=== PATIENT | male | born 1945 | race Caucasian/White ===

== ENCOUNTER 2017-04-07 09:00 | Inpatient (IN) | payer MEDICARE ==
--- NOTE | 2017-04-07 10:19 | Rehab Joint Replacement Pre-Op ---
Rehab Joint Replacement Pre-Op - Pre-Op Visit Reviewed Items Scheduled for Post Op Visit: No Pre-Op Visit Comment: Pt lives in single family home, 3 steps to enter. All living on 1st floor. Pt needs walker and tub bench want to look for cowlitz equipment. may need some equipment when arrive for surgery if can't find. Pt given sources. Dale Hose/Garment Measure THR - Thigh High: Yes Exercise Reviewed: Yes Stair Climbing: Yes Cane/Walker/Crutch Training: Yes Vend Equipment - Cane or Walker and OT Kit: N/A List of Venders in the Area: Yes Shower Chair Transfers: Yes Car Transfers: Yes Bed Transfers: Yes Additional Comments: Pt did very well. but encouraged to get equipment and practice.
[2017-04-14] MEDS ORDERED: METOCLOPRAMIDE 10 MG TABLET PO ONE (06:00)
[2017-04-14] MEDS ORDERED: CEFAZOLIN 2 Gram 50 ML IVPB ONE (06:00)
[2017-04-14] MEDS ORDERED: CELECOXIB 100 MG CAPSULE PO ONE (06:00)
[2017-04-14] MEDS ORDERED: VANCOMYCIN HCL 1,000 MG in 0.9 % SODIUM CHLORIDE 250ML 250 ML IVPB ONE (06:00)
[2017-04-14] MEDS ORDERED: ACETAMINOPHEN 1000MG/100 ML PREMIX IV ONE (06:00)
[2017-04-14] MEDS ORDERED: FAMOTIDINE 20MG TABLET PO ONE (06:00)
[2017-04-14] MEDS ORDERED: MECLIZINE 25 MG TABLET PO ONE (06:00)
[2017-04-14] MEDS ORDERED: TRANEXAMIC ACID 1,000 MG/10 ML ML IV ONE ×2 (06:00→14:00)
[2017-04-14 08:29] LABS: ABO GROUP A; ANTIBODY SCREEN NEGATIVE (NEGATIVE); RH TYPE POSITIVE
[2017-04-14] MEDS ORDERED: NALOXONE 0.4 MG/1 ML VIAL IVP PRN (11:09)
[2017-04-14] MEDS ORDERED: ONDANSETRON HCL IV 4 MG/2 ML VIAL IVP PRN (11:09)
[2017-04-14] MEDS ORDERED: TRAMADOL HCL 50 MG TABLET PO PRN (11:09)
[2017-04-14] MEDS ORDERED: KETOROLAC 30 MG/ML VIAL IVP PRN ×2 (11:09)
[2017-04-14] MEDS ORDERED: ACETAMINOPHEN 325 MG TAB PO PRN (11:09)
[2017-04-14] MEDS ORDERED: ZOLPIDEM TARTRATE 5 MG TABLET PO PRN (11:09)
[2017-04-14] MEDS ORDERED: DIPHENHYDRAMINE HCL 25 MG CAPSULE PO PRN (11:09)
[2017-04-14] MEDS ORDERED: HYDROMORPHONE HCL 1 MG/ML CPJ IM PRN ×2 (11:09)
[2017-04-14] MEDS ORDERED: BISACODYL 10 MG SUPP RC PRN (11:09)
[2017-04-14] MEDS ORDERED: AL HYDROX/MAG HYDROX 30ML UD PO PRN (11:09)
[2017-04-14] MEDS ORDERED: MAGNESIUM HYDROXIDE 30 ML UDC PO PRN (11:09)
[2017-04-14] MEDS ORDERED: ACETAMINOPHEN W/ CODEINE 300MG/60MG TABLET PO PRN ×2 (11:09)
[2017-04-14] MEDS ORDERED: HYDROMORPHONE HCL 2 MG/ML VIAL IM PRN (11:09)
[2017-04-14] MEDS ORDERED: RIVAROXABAN 10 MG TABLET PO SCH (11:15)
[2017-04-14] MEDS ORDERED: POTASSIUM CHLORIDE/D5-0.9%NACL 20 MEQ in PREMIX D5 + NS 1000ML 1 BAG IV SCH (11:15)
[2017-04-14] MEDS ORDERED: LORAZEPAM 2 MG/ML VIAL IV ONE (13:45)
[2017-04-14] MEDS ORDERED: ALPRAZOLAM 0.25 MG TABLET PO PRN (13:52)
[2017-04-14] MEDS ORDERED: FENTANYL PF 100MCG/2ML VIAL IV ONE (14:00)
[2017-04-14] MEDS ORDERED: *PACU ONLY* KETAMINE HCL 10 MG/ML (20ML) VIAL IV ONE (14:00)
[2017-04-14] MEDS ORDERED: BUPIVACAINE 0.5% W/EPI MPF 30 ML VIAL IVP ONE (14:00)
[2017-04-14] MEDS ORDERED: MIDAZOLAM HCL 2MG/2ML VIAL IV ONE (14:00)
[2017-04-14] MEDS ORDERED: LORAZEPAM 0.5 MG TABLET PO ONE (14:00)
[2017-04-14] MEDS ORDERED: KETOROLAC 30 MG/ML VIAL IVP ONE (14:00)
[2017-04-14] MEDS ORDERED: LIDOCAINE 2% MDV (20MG/ML) 20ML VIAL IV ONE (14:00)
[2017-04-14] MEDS ORDERED: PROPOFOL 10 MG/ML VIAL IV ONE (14:00)
[2017-04-14] MEDS: POTASSIUM CHLORIDE/D5-0.9%NACL 20 MEQ/1,000 ML BAG IV SCH ×2 (15:00→23:44)
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
[2017-04-14] MEDS ORDERED: LORAZEPAM 0.5 MG TABLET PO SCH (16:00)
[2017-04-14] MEDS: LORAZEPAM 0.5 MG TABLET PO SCH ×3 (16:16→22:03)
[2017-04-14] MEDS: CEFAZOLIN 2 Gram 2 GM/50 ML BAG IVPB SCH ×2 (16:24→23:36)
[2017-04-14] MEDS: HYDROCODONE/APAP 10/325 TABLET PO PRN (20:16)
[2017-04-14] MEDS: PATIENT OWN MED: LISINOPRIL 20 MG PO SCH (20:19)
[2017-04-14] MEDS: PATIENT OWN MED: PRAVASTATIN 80 MG PO SCH (20:19)
[2017-04-14] MEDS: PATIENT OWN MED: DULOXETINE 60 MG PO SCH (20:19)
[2017-04-14] MEDS: PATIENT OWN MED: TAMSULOSIN 0.4 MG PO SCH (20:19)
[2017-04-14] MEDS: DOCUSATE SODIUM 100 MG CAPSULE PO SCH (22:03)
[2017-04-15] MEDS: HYDROCODONE/APAP 10/325 TABLET PO PRN ×4 (00:03→16:52)
[2017-04-15] MEDS: POTASSIUM CHLORIDE/D5-0.9%NACL 20 MEQ/1,000 ML BAG IV SCH (05:31)
[2017-04-15 06:34] LABS: HEMATOCRIT 32.5 % (42.0-52.0); HEMOGLOBIN 10.9 gm/dl (14.0-18.0)
[2017-04-15 06:49] LABS: ANION GAP 5.9 (7-16); CARBON DIOXIDE 26.1 mmol/L (22-30); CREATININE 0.8 mg/dL (0.66-1.25); EST GLOMERULAR FILTRATION RATE > 60 ml/min; GLUCOSE,RANDOM 129 mg/dL (70-110)
[2017-04-15 06:55] LABS: BLOOD UREA NITROGEN 8 mg/dL (9-20)
[2017-04-15] MEDS: CEFAZOLIN 2 Gram 2 GM/50 ML BAG IVPB SCH (08:30)
[2017-04-15] MEDS: PATIENT OWN MED: TAMSULOSIN 0.4 MG PO SCH ×2 (08:57→21:49)
--- NOTE | 2017-04-15 09:41 | Physical Therapy Tx Note ---
Physical Therapy Tx Note - Treatment Note Tolerated: Fair (Patient a little confused but claims no dizziness or nausea, affect impaired a little. Balance issues with walking with standard walker: whenever picks up walker, leans back too far and almost loses balance. Only walked 20 feet today; just outside room then back to chair.) Total Time Spent With Patient: 20 Physical Therapy Tx Note: Detail (Patient seen in room, sitting up in chair and just had pain med so a little sore at knee yet. Started treatment with some knee ROM exercises and hip motions seated in chair but still had quite a lot of pain. Sit to stand with CGA and cues then ambulated with standard walker but had to repeat sequence for patient each step and only able to ambulate about 20 feet with standard walker just outside room then back to chair. Left patient in chair with foot supported on tray table base, tray table close and call light close.) Physical Therapy Problem List: Detail (Some decrease in functional mobility and community distance gait yet. Decreased ROM knee.) Physical Therapy Goals: 1. Patient will be able to ambulate safely community distances to go home safely. 2. ROM will increase knee 0-90 degrees. 3. Maintain independent mobility status. Prognosis: Good (Believe patient will be better this afternoon as get used to knee and how feels now. Pain does seem to be controlled fairly well. Need to do steps this afternoon and explained that to patient.) Physical Therapy Plan: Continue PT BID tomorrow and next am if needed before discharge home.
[2017-04-15] MEDS: LORAZEPAM 0.5 MG TABLET PO SCH ×3 (10:39→21:47)
[2017-04-15] MEDS: DOCUSATE SODIUM 100 MG CAPSULE PO SCH ×2 (10:45→21:49)
[2017-04-15] MEDS: FERROUS SULFATE 325 MG TAB PO SCH (10:45)
[2017-04-15] MEDS: RIVAROXABAN 10 MG TABLET PO SCH (10:46)
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
--- NOTE | 2017-04-15 13:22 | Operative Note ---
DATE OF SURGERY: 04/14/2017. PREOPERATIVE DIAGNOSIS: Profound end-stage arthrosis of the right knee. POSTOPERATIVE DIAGNOSIS: Profound end-stage arthrosis of the right knee. OPERATION: Cemented right total knee arthroplasty using [employer] Alla II components, with a size 6 Oxinium femur, a size 5 stemmed tibial baseplate, a 9 mm elliptical insert, and a 35 mm all plastic patella. Staff Surgeon: Yahir Estrada MD. Anesthesia: Spinal. Preparation: ChloraPrep. Individual Considerations: None. PROCEDURE: Patient was taken to the operating room, placed supine on the operating table. Using successful induction with spinal anesthetic, his right lower extremity was prepped and draped in the usual fashion. Patient had midline approach to the knee. Sharp dissection carried down through skin and subcutaneous tissue. Small veins were coagulated with a Bovie. A medial arthrotomy was performed. Patella was everted. Knee was flexed. He had bone loss and [id number] contact pretty much throughout. His knee was basically a mess. The fat pad was resected. There was no ACL. Capsule was released, and medial proximal tibia and provisional anterior meniscectomies were performed. Initial femoral company pilot hole was then made freehand. Intramedullary femoral cutting jig was placed, and it was cut in 7.0 degrees of valgus and adjusted for rotation and secured with pins for a 10 mm resection. The initial transverse guide was then placed. After making the initial transverse cut, the skid guide was placed in the anterior and posterior company pilot holes. It was found that a size 6 would be appropriate. The anterior and posterior cuts were made, followed by chamfer cuts, osteophytes removed, and a size trial was placed and found to fit well. Tibia was brought forward. The remainder of the meniscal remnants were removed with the Bovie. The extraarticular tibial cutting jig was placed and it was cut in neutral with a 3 degree AP slope. It was set for a 9 mm resection keyed off the high lateral side and secured with pins. When cutting the tibia, care was taken to preserve the PCL insertion on the tibia. After making the tibia cut, large osteophytes removed, and it was found that a size 5 would be appropriate. It was adjusted for rotation and secured with pins. With the femoral trial and the 9 mm lip trial, there were excellent motion and stability. Ligamentous balance and rotation line were thought to be normal. The femoral company pilot holes were impacted and the triflange tibial stamp was impacted, and these trial components were removed. Patient had a thick patella, and roughly 9 mm of bone were removed with an oscillating saw, and the 3 company pilot holes were drilled for a 35 mm patella. After the tourniquet was let down briefly to get bleeders posteriorly, I also evacuated a huge meniscal cyst laterally. After thorough pulsatile irrigation to remove any visual or palpable debris, the bony surfaces were dried. A size 5 stemmed tibial baseplate was cemented into place, followed by impaction of a 9 mm lipped tibial insert, followed by cementing a size 6 Oxinium femur, followed by cementing in the 35 mm patella. Implant surfaces were compressed, excess cement was removed, and after the cement had set, there were excellent motion and stability, ligamentous balance, rotation line, and patellofemoral tracking were normal. No lateral release was required. Again thorough irrigation. Tourniquet was again let down to get hemostasis. The skin and soft tissues were then infiltrated with 30 mL of 0.5% Marcaine with epinephrine. The fascia was then closed with a running #2 Quill. Subcu was closed with running #0 Quill. Skin was closed with akil. Patient did receive 1 g of tranexamic acid preoperatively. We then mixed 1 g of tranexamic acid with 40 mL of saline and injected it into the knee through a sterile 18 gauge needle, and a sterile, bulky, compressive Aquacel-type dressing was applied. Patient tolerated the procedure well. Needle and sponge counts were correct. Estimated blood loss was minimal, and he was taken back to recovery in good condition. There were no complications. CC: DO CASIMIRO Turner
--- NOTE | 2017-04-15 14:15 | Physical Therapy Tx Note ---
Physical Therapy Tx Note - Treatment Note Tolerated: Good, Fair (Patient quite sleepy from meds so saw him in room still trying to eat lunch, needed to go to bathroom so able to assist with that first but patient does not guard leg well when sits down so knee bends too far, more pain. Balance is slightly better this afternoon.) Total Time Spent With Patient: 25 Physical Therapy Tx Note: Detail (Patient seen in room, sitting up at edge of bed with alarm going off so disarmed then assisted patient with removal of compressive cuffs then sit to stand with CGA, ambulated to bathroom with standard walker with CGA about 10 feet. After using commode, ambulated to doorway of room then wheeled patient in wheelchair to stairs, patient able to ambulate down three steps with lots of verbal cues and rail, folded walker with proper technique, mod assist for safety then back up after turning around with walker three steps then sat in wheelchair and was wheeled back to room. Assisted patient with very little assist into bed and patient able to lift LE into bed independently. Balance was better this afternoon walking with standard walker but patient very sleepy and had to get his attention serveral times during course of treatment.) Physical Therapy Problem List: Detail (Some decrease in functional mobility and community distance gait yet. Decreased ROM knee.) Physical Therapy Goals: 1. Patient will be able to ambulate safely community distances to go home safely. 2. ROM will increase knee 0-90 degrees. 3. Maintain independent mobility status. Prognosis: Good (Patient should do better after gets home, but right now he is so sleepy and having a hard time concentrating on therapy. Patient will be seen tomorrow am for more therapy for gait training but does not need to do stairs again.) Physical Therapy Plan: Continue PT BID tomorrow and next am if needed before discharge home.
[2017-04-15] MEDS: PATIENT OWN MED: LISINOPRIL 20 MG PO SCH (21:49)
[2017-04-15] MEDS: PATIENT OWN MED: DULOXETINE 60 MG PO SCH (21:49)
[2017-04-15] MEDS: PATIENT OWN MED: PRAVASTATIN 80 MG PO SCH (21:49)
[2017-04-16] MEDS: LORAZEPAM 2 MG/ML VIAL IV PRN ×2 (00:27→17:47)
[2017-04-16] MEDS: HYDROCODONE/APAP 10/325 TABLET PO PRN ×2 (00:56→10:06)
[2017-04-16 06:40] LABS: HEMATOCRIT 28.6 % (42.0-52.0); HEMOGLOBIN 9.5 gm/dl (14.0-18.0)
[2017-04-16 06:51] LABS: ANION GAP 6.1 (7-16); BLOOD UREA NITROGEN 6 mg/dL (9-20); CARBON DIOXIDE 27.9 mmol/L (22-30); CREATININE 0.7 mg/dL (0.66-1.25); EST GLOMERULAR FILTRATION RATE > 60 ml/min; GLUCOSE,RANDOM 115 mg/dL (70-110)
[2017-04-16] MEDS: LORAZEPAM 0.5 MG TABLET PO SCH ×2 (07:23→07:31)
[2017-04-16] MEDS: POTASSIUM CHLORIDE/D5-0.9%NACL 20 MEQ/1,000 ML BAG IV SCH (07:37)
[2017-04-16] MEDS: PATIENT OWN MED: TAMSULOSIN 0.4 MG PO SCH (07:38)
[2017-04-16] MEDS: DOCUSATE SODIUM 100 MG CAPSULE PO SCH (10:01)
[2017-04-16] MEDS: FERROUS SULFATE 325 MG TAB PO SCH (10:01)
[2017-04-16] MEDS: RIVAROXABAN 10 MG TABLET PO SCH (10:02)
--- NOTE | 2017-04-16 11:09 | Physical Therapy Tx Note ---
Physical Therapy Tx Note - Treatment Note Tolerated: Fair Total Time Spent With Patient: 20 Physical Therapy Tx Note: Detail (Pt was sitting in chair with nursing staff present in room. Pt was disoriented and confused when asked name and address. Pt 's nurse states he has been hallucinating and agitated and not to be left alone at any point in time. Pt declined ex's but when asked to complete activities did so with little hesitation. Pt completed seated ankle pumps, LAQ, HS curls, marches and hip adduction with pillow all x 10 each and bilaterally. Pt completed 2 sit to stands with min assist x 2 but required frequent verbal cueing for ascent and descent into chair. Pt was able to stand at standard walker and completed standing marches x 4 but was very unsteady and seemed confused with all activities completed. Pt returned to chair and declined further activity. Pt was left with table, nursing call button and nurse in room for observation. Pt continually reached for items in the air that were not there , attempted to put an IV in for himself, IV pole removed from room. Pt stated multiple times that he needed to go. But did not say to where he wanted to go, and made many statements that were not coherent. Unsure if Pt to stay today, Dr. haynes possibly refer to rehab this afternoon.) Physical Therapy Problem List: Detail (Some decrease in functional mobility and community distance gait yet. Decreased ROM knee.) Physical Therapy Goals: 1. Patient will be able to ambulate safely community distances to go home safely. 2. ROM will increase knee 0-90 degrees. 3. Maintain independent mobility status. Prognosis: Moderate Physical Therapy Plan: Continue PT BID tomorrow and next am if needed before discharge home.
[2017-04-16] MEDS ORDERED: CYANOCOBALAMIN (VITAMIN B-12) 100 MCG TABLET PO SCH (13:00)
[2017-04-16] MEDS ORDERED: THIAMINE MONONITRATE 100 MG TABLET PO SCH (13:00)
[2017-04-16] MEDS ORDERED: FOLIC ACID 1 MG TABLET PO SCH (13:00)
[2017-04-16] MEDS ORDERED: LORAZEPAM 0.5 MG TABLET PO SCH (14:00)
[2017-04-16] MEDS ORDERED: 0.9 % SODIUM CHLORIDE 1000ML 1,000 ML IV PRN (15:31)
--- NOTE | 2017-04-17 15:29 | Discharge Note ---
VTE H&P Assessment - Risk for VTE Risk for VTE: Yes Risk Level: Very Low Risk Assessment Date: 04/17/17 Risk Assessment Time: 15:24 VTE Orders Placed or Will Be Placed: No VTE Reason for No Prophylaxis: Clinical Trial Participant Discharge Note - Date Date of Discharge Note: 04/17/17 Disposition: Acute Care Hospital Transfer Condition: (2) Stable Referrals: JOHN BECKER [Primary Care Provider] -
--- NOTE | 2017-04-21 15:54 | Discharge Summary ---
DATE OF ADMISSION: 04/14/2017 DATE OF DISCHARGE: 04/16/2017 DATE OF SURGERY: 04/14/2017 HISTORY: The patient is a 72-year-old male who presents with profound end-stage arthrosis of his left knee. He was admitted after left total knee arthroplasty. Postoperatively, regarding his knee, he did great. His discharge hemoglobin was 9.9. He did well with therapy. The problem is that he started to develop the symptoms of alcohol withdrawal. We kept him on Ativan 2 mg p.o. q.8 h. with occasional 1 mg IV push as needed for agitation. He became periodically confused and it was thought best after consulting with the medical service that he be transferred to a detoxification center. He is going to be transferred there. Orthopedically, he may weightbear as tolerated. He has an Aquacel type dressing on his knee and that should remain intact for about 5-7 days and at that point it can just be removed. He can shower over the dressing as long as it is intact. It is waterproof. He should not bathe, though. On 04/28/2017 the sutures should be removed. He should be maintained on Xarelto 10 mg p.o. daily for 15 days for DVT prophylaxis and then he should take 1 regular aspirin daily for 30 days. He should followup in my office in 4 weeks. He should continue his preoperative medications which include Flomax, Xanax, Pravachol, nortriptyline, and Zestril. His transfer condition was fair. These instructions were given to his . Again, he should follow up in my office in 4 weeks. His discharge is going to be handled by the medical service at [facility]. The remainder of the medical orders are referred to their discharge medication reconciliation. PRIMARY DIAGNOSIS: End-stage arthrosis of the left knee. SECONDARY DIAGNOSES: 1. Alcohol withdrawal syndrome. 2. Chronic urinary obstruction. 3. Dyslipidemia. OPERATIONS/PROCEDURES: Cemented left total knee arthroplasty. CC: Dr. Cassy KIRKPATRICK
== END 2017-04-16 19:00 | disposition short-term general hospital (02) | DRG 470 ==
LOC: MEDSURG 04-14 06:54
PROVIDERS: ADMIT Orthopaedic Surgery; ATTEND Orthopaedic Surgery
PROC: 0SRC0J9 Replacement of Right Knee Joint with Synthetic Substitute, Cemented, Open Approach (ICD-10-PCS; principal; 2017-04-14 09:00)
DX: M17.11 Unilateral primary osteoarthritis, right knee (principal); F10.231 Alcohol dependence with withdrawal delirium; I10 Essential (primary) hypertension; E78.00 Pure hypercholesterolemia, unspecified; H35.30 Unspecified macular degeneration
CPT/HCPCS: 80048; 85014; 85018; 86850; 86900; 86901; 97116; 97166; 97530; J1885; J3480; J7050